=== PATIENT | male | born 1960 | race Caucasian/White ===

== ENCOUNTER → 2022-10-10 | Outpatient (CLI) | payer MEDICARE ==
--- NOTE | 2022-10-10 11:59 | CTL ---
EXAMINATION TYPE: CT Low Dose Lung DATE OF EXAM ORDERED: 10/10/2022 HISTORY: Z87.891. Lung cancer screening CT DLP: [address] CTDI: 1.82 mGy Automated exposure control for dose reduction was used. SCREENING VISIT: First screening visit COMPARISON: None TECHNIQUE: Low dose computed tomography scan was performed through the chest at 1 mm thick sections a nd reconstructed images in multiple planes at 1 mm and [address] DIAGNOSTIC QUALITY: Satisfactory FINDINGS: LUNG NODULES: Medial left lower lobe pleural-based 5.8 mm pulmonary nodule (series 4, image 171). Pos terior medial right upper lobe 4.4 mm pleural-based pulmonary nodule (series 4, image 40). LUNGS: COPD: Severity: None Fibrosis: Severity: None Lymph nodes: Few mediastinal lymph nodes measuring less than 1 cm short axis. Other findings: None RIGHT PLEURAL SPACE: Effusion: None Calcification: None Thickening: None Pneumothorax: None LEFT PLEURAL SPACE: Effusion: None Calcification: None Thickening: None Pneumothorax: None HEART: Heart Size: Normal Coronary Calcification: None Pericardial Effusion: None OTHER FINDINGS: Upper abdomen: Nonobstructing 1 cm left renal calculus. Bony thorax: No acute osseous abnormality. Degenerative changes of the thoracic spine. Supraclavicular region: None Other: None IMPRESSION: 1. There are 2 pleural-based pulmonary nodules with largest measuring up to 5.8 mm. 2. Nonobstructive left renal calculus. CT LUNG RAD AND CT CHEST RECOMMENDATION: Lung-Rad 2 Benign Appearance or Behavior: Continue annual sc reening with LDCT in 12 months. S Modifier (other clinically significant findings): None
== END | disposition home or self-care (01) ==
LOC: RADCTMAIN 11:05
PROVIDERS: ATTEND Family Medicine
DX: Z12.2 Encounter for screening for malignant neoplasm of respiratory organs (principal); F17.210 Nicotine dependence, cigarettes, uncomplicated; N20.0 Calculus of kidney; R91.8 Other nonspecific abnormal finding of lung field
CPT/HCPCS: 71271

== ENCOUNTER 2022-11-18 12:53 | Emergency (ER) | payer MEDICARE ==
[2022-11-18 13:02] VITALS: TEMP 97.5
[2022-11-18 13:55] LABS: Basophils % (A) 0 %; Eosinophils # (A) 0.4 k/uL (0-0.7); Eosinophils % (A) 5 %; HCT 38.4 % (39.0-53.0); HGB 12.9 gm/dL (13.0-17.5); Lymphocytes # (A) 2.7 k/uL (1.0-4.8); Lymphocytes % (A) 34 %; MCH 29.5 pg (25.0-35.0); MCHC 33.5 g/dL (31.0-37.0); MCV 88.1 fL (80.0-100.0); Monocytes # (A) 0.5 k/uL (0-1.0); Monocytes % (A) 6 %; Neutrophils # (A) 4.3 k/uL (1.3-7.7); Neutrophils % (A) 53 %; Platelet Count 292 k/uL (150-450); RBC 4.35 m/uL (4.30-5.90); RDW 13.9 % (11.5-15.5); WBC 8.1 k/uL (3.8-10.6)
[2022-11-18 14:00] VITALS: BP 124/75; PULSE 55; RESP 18
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
[2022-11-18 14:11] LABS: ALT 20 U/L (4-49); AST 19 U/L (17-59); African American GFR (CKD) >90 (>60 ml/min/1.73 sqM); Albumin 3.8 g/dL (3.5-5.0); Alkaline Phosphatase 137 U/L (38-126); Anion Gap 6 mmol/L; Blood Urea Nitrogen 17 mg/dL (9-20); Carbon Dioxide 27 mmol/L (22-30); Chloride 102 mmol/L (98-107); Glucose 99 mg/dL (74-99); Non-African American GFR(CKD) >90 (>60 ml/min/1.73 sqM); Potassium 3.4 mmol/L (3.5-5.1); Sodium 135 mmol/L (137-145); Total Bilirubin 0.4 mg/dL (0.2-1.3); Total Protein 6.7 g/dL (6.3-8.2)
[2022-11-18 14:25] LABS: INR 0.9 (<1.2); Partial Thromboplastin Time 23.6 sec (22.0-30.0); Prothrombin Time 9.8 sec (9.0-12.0)
--- NOTE | 2022-11-18 15:40 | CT ---
EXAMINATION TYPE: CT chest angio for PE CT DLP: 368.1 mGycm, Automated exposure control for dose reduction was used. DATE OF EXAM: 11/18/2022 3:25 PM COMPARISON: Chest CT 10/10/2022 . CLINICAL INDICATION:Male, 62 years old with history of elevated d-dimer; R/O PE. TECHNIQUE/CONTRAST: CTA scan of the thorax is performed with IV Contrast, patient injected with 100cc mL of Isovue 370, p ulmonary embolism protocol. MIP images are created and reviewed. FINDINGS: Pulmonary Artery: There is no evidence for a filling defect within the pulmonary vasculature to sugge st acute pulmonary embolism. The pulmonary artery is of normal size. Lungs/Pleura: Redemonstration of posterior, medial right upper lobe pulmonary nodule, measuring 5 mm (series 601, image 26), not significantly changed from prior CT. Stable appearance of 6 mm left lower lobe pleural-based pulmonary nodule (series 601, image 91). No focal consolidations, pleural effusio ns or pneumothorax. Airway: Secretions are seen within the trachea and main bronchi. Heart: Heart is within normal limits for size.. Vasculature: No evidence of aortic aneurysm. Mediastinum: No gross evidence of adenopathy. Musculoskeletal: Mild degenerative disc disease changes are present throughout the thoracolumbar spin e. Soft Tissues: Unremarkable. Lower neck: No significant findings. Upper Abdomen: Bilateral nonobstructing renal calculi, largest in the left kidney measuring 10 mm. IMPRESSION: 1. No evidence of pulmonary embolism. 2. Redemonstration of bilateral pleural-based pulmonary nodules, largest of which measures up to 6 mm . Overall unchanged from 10/10/2022. Continue to recommend one year low-dose CT follow-up. 3. Bilateral non-obstructing renal calculi.
== END 2022-11-18 15:40 | disposition left against medical advice (07) ==
LOC: EC 12:53
DX: N20.0 Calculus of kidney (principal); R07.9 Chest pain, unspecified; I10 Essential (primary) hypertension; E11.9 Type 2 diabetes mellitus without complications; J44.9 Chronic obstructive pulmonary disease, unspecified; F17.200 Nicotine dependence, unspecified, uncomplicated; Z88.0 Allergy status to penicillin; Z86.59 Personal history of other mental and behavioral disorders; Z53.29 Procedure and treatment not carried out because of patient's decision for other reasons
CPT/HCPCS: 36415; 93005; 85379; 83880; 80053; 83605; 84484; 85025; 85610; 85730; 71275; 99285; Q9967

== ENCOUNTER → 2023-03-07 | Outpatient (CLI) | payer MEDICARE ==
--- NOTE | 2023-03-12 13:24 | US ---
EXAMINATION TYPE: US thyroid st tissue head/neck DATE OF EXAM: 03/07/2023 COMPARISON: NONE CLINICAL INDICATION: Male, 62 years old with history of E04.1 NONTOXIC SINGLE THYROID NODULE; Abnorma l labs GLAND SIZE: Right Lobe: 3.9 x 1.6 x 1.8 cm Overall Parenchyma: homogenous Left Lobe: 3.8 x 1.4 x 1.2 cm Overall Parenchyma: homogeneous Isthmus Thickness: 0.6 cm NODULES RIGHT: # of nodules measured on right: 0 LEFT: # of nodules measured on left: 0 ISTHMUS: # of nodules measured in the isthmus: 0 Bilateral neck scanned, no evidence of lymphadenopathy. IMPRESSION: 1. No suspicious thyroid nodules.
== END | disposition home or self-care (01) ==
LOC: RADUSWWP 15:32
PROVIDERS: ATTEND Family Medicine
DX: E04.1 Nontoxic single thyroid nodule (principal)
CPT/HCPCS: 76536

== ENCOUNTER 2023-07-12 13:05 | Emergency (ER) | payer MEDICARE ==
[2023-07-12 13:22] VITALS: PULSE 55; RESP 20; TEMP 98.8
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
--- NOTE | 2023-07-12 15:49 | XR ---
EXAMINATION TYPE: XR lumbar spine 3V DATE OF EXAM: 07/12/2023 Comparison: None Clinical History: 63-year-old male Pain Findings: Leftward truncal shift. 5 lumbar type vertebral bodies. Facet arthropathy mid to lower lumbar spine. Moderate degenerative disc disease L4-L5 and L5-S1 with disc space narrowing and endplate spondylosis . Mild degenerative disc disease elsewhere in the lumbar spine. Vertebral body heights are preserved. Alignment maintained. Impression: 1. Facet arthropathy mid to lower lumbar spine. Moderate degenerative disc disease lower lumbar spine . Mild elsewhere in the lumbar spine. 2. No vertebral compression collapse or malalignment.
--- NOTE | 2023-07-12 15:51 | XR ---
EXAMINATION TYPE: XR ankle limited 2 views bilateral, XR foot limited 2 views bilateral DATE OF EXAM: 07/12/2023 COMPARISON: NONE HISTORY: 63-year-old male with pain FINDINGS: Ankles: No mortise view is provided on either side. There may be mild circumferential soft tissue swelling on both sides. No acute fracture, subluxation, or dislocation. Feet: Moderate degenerative change at the left greater than right first MTP joints. Hernandez's toe on the lef t. No acute fracture, subluxation, dislocation seen. IMPRESSION: 1. Ankles: There may be mild soft tissue swelling. No acute osseous abnormality seen. No mortise view provided. 2. Feet: Moderate first MTP joint OA, left greater than right. No acute osseous abnormality seen.
== END 2023-07-12 16:45 | disposition home or self-care (01) ==
LOC: EC 13:05
DX: M54.50 Low back pain, unspecified (principal); M25.473 Effusion, unspecified ankle; I10 Essential (primary) hypertension; E11.9 Type 2 diabetes mellitus without complications; J44.9 Chronic obstructive pulmonary disease, unspecified; F17.200 Nicotine dependence, unspecified, uncomplicated; Z88.0 Allergy status to penicillin; Z86.59 Personal history of other mental and behavioral disorders; W18.30XA Fall on same level, unspecified, initial encounter
CPT/HCPCS: 72100; 99283

== ENCOUNTER 2023-09-30 16:44 | Emergency (ER) | payer MEDICARE ==
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
[2023-09-30] MEDS: SULFAMETHOX-TMP 800-160MG 1 EACH TAB PO STA (17:24)
[2023-09-30] MEDS: CEPHALEXIN 500 MG CAP PO STA (17:25)
[2023-09-30] MEDS: DIPH,PERTUS(ACELL)TETVAC-LF 0.5 ML VIAL IM ONE (17:25)
[2023-09-30 18:17] VITALS: BP 129/69; PULSE 84; RESP 22; TEMP 99.3
== END 2023-09-30 18:38 | disposition home or self-care (01) ==
LOC: EC 16:44
DX: S81.812A Laceration without foreign body, left lower leg, initial encounter (principal); L03.116 Cellulitis of left lower limb; F17.200 Nicotine dependence, unspecified, uncomplicated; Z88.0 Allergy status to penicillin; Z23 Encounter for immunization; W26.8XXA Contact with other sharp object(s), not elsewhere classified, initial encounter
CPT/HCPCS: 90471; 90715; 99282

== ENCOUNTER 2024-01-18 12:21 | Inpatient (IN) | payer MEDICARE ==
[2024-01-18] MEDS: KETOROLAC 15 MG/ML 1 ML VIAL IVP STA (12:38)
[2024-01-18 13:25] LABS: Basophils % (A) 0 %; Eosinophils # (A) 0.2 k/uL (0-0.7); Eosinophils % (A) 1 %; HCT 37.2 % (39.0-53.0); Lymphocytes % (A) 6 %; MCH 28.4 pg (25.0-35.0); MCHC 32.4 g/dL (31.0-37.0); MCV 87.8 fL (80.0-100.0); Mean Platelet Volume 6.6; Monocytes # (A) 1.1 k/uL (0-1.0); Monocytes % (A) 6 %; Neutrophils # (A) 14.4 k/uL (1.3-7.7); Neutrophils % (A) 86 %; Platelet Count 357 k/uL (150-450); RBC 4.23 m/uL (4.30-5.90); RDW 14.9 % (11.5-15.5); WBC 16.7 k/uL (3.8-10.6)
--- NOTE | 2024-01-18 13:25 | XR ---
EXAMINATION TYPE: XR chest 2V DATE OF EXAM: 01/18/2024 COMPARISON: NONE HISTORY: Chest pain and dyspnea TECHNIQUE: Frontal and lateral views of the chest are obtained. FINDINGS: There is a partially consolidative/airspace infiltrate and small pleural effusion in the left lung base left lung base most consistent with an acute pneumonia. Short-term follow-up to resolution is recommended. The heart and pulmonary vasculature are noted. The right lung is clear. IMPRESSION: Left lower lobe infiltrate and small effusion most likely acute pneumonia.
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
[2024-01-18 13:39] LABS: ALT 12 U/L (4-49); AST 19 U/L (17-59); African American GFR (CKD) >90 (>60 ml/min/1.73 sqM); Albumin 3.8 g/dL (3.5-5.0); Alcohol <10 mg/dL; Alkaline Phosphatase 173 U/L (38-126); Anion Gap 7 mmol/L; Blood Urea Nitrogen 17 mg/dL (9-20); Calcium 8.9 mg/dL (8.4-10.2); Carbon Dioxide 25 mmol/L (22-30); Chloride 102 mmol/L (98-107); Creatine Kinase 76 U/L (55-170); Glucose 108 mg/dL (74-99); Lipase 26 U/L (23-300); Magnesium 1.5 mg/dL (1.6-2.3); Non-African American GFR(CKD) >90 (>60 ml/min/1.73 sqM); Potassium 3.1 mmol/L (3.5-5.1); Sodium 134 mmol/L (137-145); Total Bilirubin 0.6 mg/dL (0.2-1.3); Total Protein 6.6 g/dL (6.3-8.2)
[2024-01-18 13:45] LABS: NT-Pro-B-Type Natriuretic Pept 358 pg/mL
[2024-01-18] MEDS: IPRATROPIUM-ALBUTEROL 3 ML NEB INHALATION STA (14:06)
[2024-01-18] MEDS: cefTRIAXone IN SWFI 1,000 MG/10 ML SYRINGE IVP STA (14:29)
--- NOTE | 2024-01-18 15:19 | CT ---
EXAMINATION TYPE: CT angio chest DATE OF EXAM: 01/18/2024 COMPARISON: 11/18/2022 HISTORY: elevated d dimer. c/o dyspnea. CT DLP: 295 mGycm CONTRAST: CT chest with contrast and 3D reconstruction with MIP imaging is performed with IV Contrast, patient injected with 100 ml mL of Isovue 370. Contrast-enhanced CT of the chest was performed through the course of the pulmonary arteries with osmar g and mediastinal window settings submitted. 3D reconstruction with MIP imaging was also performed. PULMONARY ARTERIES: The pulmonary arteries and their major tributaries are patent. I do not see jeffrey dence for sizable filling defect to suggest pulmonary embolic process. LUNGS: There is a small left-sided pleural effusion. Focal masslike consolidation seen left lower lob e which could reflect pneumonia or aspiration pneumonia. Underlying neoplasm is not excluded. Masslik e area measures 4.7 x 4.0 cm. Follow-up until resolution and strict clinical correlation advised. If abnormality does not resolve PET CT is advised. Small groundglass density left upper lobe image 86. MEDIASTINUM: Thoracic aorta is of normal caliber. The heart is not enlarged. No evidence for medias tinal mass. No mediastinal lymph nodes greater than 1cm. HILAR STRUCTURES: No evidence for mass. No hilar lymph nodes greater than 1 cm. UPPER ABDOMEN: No significant abnormality is seen. IMPRESSION: 1. No evidence for Pulmonary embolism at this time. 2.Focal masslike consolidation seen left lower lobe which could reflect pneumonia or aspiration pneum onia. Underlying neoplasm is not excluded. Masslike area measures 4.7 x 4.0 cm. Follow-up until resol ution and strict clinical correlation advised. If abnormality does not resolve PET CT is advised.
[2024-01-18] MEDS ORDERED: PNEUMONIA PROTOCOL UTILIZED 1 EACH MISC PO PRN (17:52)
[2024-01-18] MEDS: SODIUM CHLORIDE 0.9% 1,000 ML IV SCH (18:18)
[2024-01-18] MEDS: AZITHROMYCIN 500 MG in SODIUM CHLORIDE 0.9% 250 ML IVPB STA (18:18)
[2024-01-18] MEDS ORDERED: Potassium Replacement Protocol 1 EACH MISC MISCELLANE PRN (19:01)
[2024-01-18] MEDS: IPRATROPIUM-ALBUTEROL 3 ML NEB INHALATION SCH (20:31)
[2024-01-18] MEDS: SYMBICORT 160-4.5 MCG INHALER INHALATION SCH (20:31)
[2024-01-18] MEDS: HYDROcodone/APAP 10-325MG 1 EACH TAB PO SCH (20:46)
[2024-01-18] MEDS: POTASSIUM CHLORIDE ER 20 MEQ TAB.ER PO SCH (20:48)
[2024-01-18] MEDS: VENLAFAXINE HCL ER 150 MG CAP PO SCH (21:48)
[2024-01-18] MEDS: NON FORMULARY DRUG (Dextroamphetamine/Amphetamine [Adderall] 20 MG Tablet) PO SCH (23:02)
[2024-01-19] MEDS: POTASSIUM CHLORIDE ER 20 MEQ TAB.ER PO SCH ×3 (02:10→18:03)
[2024-01-19] MEDS: HYDROmorphone 1 MG/ML 1 ML SYRINGE IVP PRN (06:12)
--- NOTE | 2024-01-19 06:48 | XR ---
EXAMINATION TYPE: XR chest 2V DATE OF EXAM: 01/19/2024 COMPARISON: 01/18/2024 HISTORY: Pneumonia, cough and shortness of breath TECHNIQUE: Frontal and lateral views of the chest are obtained. FINDINGS: There is interval worsening in the left lower lobe opacification. There is a new small loculated ple ural effusion at the costophrenic angle. Overall pleural effusion significantly increased compared to previous. The right lung remains clear. There is no pneumothorax. Osseous structures are intact. IMPRESSION: Worsening acute cardiopulmonary process in the left lower lobe. Findings are consistent with the pro vided history of pneumonia.
[2024-01-19] MEDS: ASPIRIN 81 MG PO SCH (09:14)
[2024-01-19] MEDS: amLODIPine 10 MG TAB PO SCH (09:14)
[2024-01-19] MEDS: AZITHROMYCIN 500 MG TAB PO SCH (09:14)
[2024-01-19] MEDS: ATORVASTATIN 80 MG TAB PO SCH (09:14)
[2024-01-19] MEDS: PROPRANOLOL LA 80 MG CAP.SA.24H PO SCH (09:14)
[2024-01-19] MEDS: FERROUS SULFATE 325 MG TAB PO SCH (09:14)
[2024-01-19] MEDS: PANTOPRAZOLE 40 MG TABLET PO SCH (09:14)
[2024-01-19] MEDS: NON FORMULARY DRUG (Atomoxetine Hcl [Strattera] 80 MG Capsule) PO SCH (09:15)
[2024-01-19] MEDS: NICOTINE 21MG/24HR PATCH TRANSDERM SCH (15:25)
[2024-01-19] MEDS ORDERED: Potassium Replacement Protocol 1 EACH MISC MISCELLANE PRN (17:51)
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
[2024-01-20 08:45] LABS: HCT 37.8 % (39.6-50.0); MCHC 31.7 g/dL (32.0-37.0); MCV 88.1 FL (80.0-97.0); Mean Platelet Volume 9.9 FL (9.5-12.2); NRBC Per 100 WBC 0 X 10*3/uL (0.00-0.01); Platelet Count 308 X 10*3/uL (140-440); RBC 4.29 X 10*6/uL (4.40-5.60); RDW 15.2 % (11.5-14.5); WBC 17.93 X 10*3/uL (4.50-10.00)
[2024-01-20 09:24] LABS: BUN/Creat Ratio 20.17 Ratio (12.00-20.00); Blood Urea Nitrogen 12.1 mg/dL (9.0-27.0); Calcium 8.7 mg/dL (8.7-10.3); Carbon Dioxide 24.5 mmol/L (21.6-31.8); Chloride 100 mmol/L (96-109); Glucose 100 mg/dL (70-110); Sodium 135 mmol/L (135-145)
[2024-01-20 10:23] LABS: Basophils # (A) 0.05 X 10*3/uL (0.00-0.10); Basophils % (A) 0.3 %; Eosinophils # (A) 0.23 X 10*3/uL (0.04-0.35); Eosinophils % (A) 1.3 %; Lymphocytes # (A) 1.35 X 10*3/uL (0.90-5.00); Lymphocytes % (A) 7.5 %; Monocytes # (A) 1.79 X 10*3/uL (0.20-1.00); Neutrophils % (A) 80.3 %; RBC Morphology Normal (Normal)
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
[2024-01-20 14:30] VITALS: BMI 20.6
[2024-01-20 20:14] LABS: Amphetamine Screen,Urine Detected (NotDetected); Barbiturate Screen,Urine Not Detected (NotDetected); Benzodiazepines Screen,Urine Not Detected (NotDetected); Cocaine Screen,Urine Not Detected (NotDetected); Methadone Screen, Urine Not Detected (NotDetected); Opiate Screen,Urine Detected (NotDetected); Oxycodone Screen, Urine Not Detected (NotDetected); Phencyclidine Screen,Urine Not Detected (NotDetected); Tricyclic Antidepressant,Urine Not Detected (NotDetected); Urn Cannabinoid Scrn Not Detected (NotDetected)
--- NOTE | 2024-01-20 22:19 | P.PN ---
Subjective Progress Note Date: 01/20/24 Principal diagnosis: Reason for follow-up is pneumonia Patient is a 63-year-old male with a past medical history significant for diabetes mellitus hypertension COPD anxiety PTSD current everyday smoker presenting to the hospital for evaluation of left-sided chest pain and cough patient did have a chest x-ray followed by CT concerning for focal masslike consolidation in the left lower lobe with a question of pneumonia. On today's evaluation that is 01/20/2024, the patient continues to be afebrile, the patient is on room air and breathing comfortably, the Pt left-sided chest pain has slightly decreased intensity he can did have a cough but not bring up any sputum denies any nausea no vomiting no abdominal pain or diarrhea. Patient white count 17.93 creatinine 0.6 urine for Legionella antigen negative blood and sputum cultures currently pending Objective - Vital Signs Vital signs: Vital Signs Temp 98.8 F 01/20/24 11:52 Pulse 80 01/20/24 11:52 Resp 16 01/20/24 11:52 BP 136/67 01/20/24 11:52 Pulse Ox 93 L 01/20/24 11:52 FiO2 Intake & Output 01/19/24 01/20/24 01/20/24 18:59 06:59 18:59 Intake Total 1200 1200 Output Total 300 300 Balance 1200 900 -300 Intake: Intake, IV Titration 1200 1200 Amount Sodium Chloride 0.9% 1, 1200 1200 000 ml @ 100 mls/hr IV . Q10H [facility] Rx#:[id number] Output: Urine 300 300 Other: Voiding Method Toilet Urinal # Voids 3 1 # Bowel Movements 0 - Exam GENERAL DESCRIPTION: An elderly male lying in bed in no distress RESPIRATORY SYSTEM: Unlabored breathing , decreased breath sounds at bases HEART: S1 S2 regular rate and rhythm , ABDOMEN: Soft , no tenderness EXTREMITIES: No edema feet - Labs CBC & Chem 7: 01/20/24 05:35 01/20/24 05:35 Labs: Abnormal Lab Results - Last 24 Hours (Table) 01/20/24 01/20/24 Range/Units 05:35 05:35 WBC 17.93 H (4.50-10.00) X 10*3/uL RBC 4.29 L (4.40-5.60) X 10*6/uL Hgb 12.0 L (13.0-17.0) g/dL Hct 37.8 L (39.6-50.0) % MCHC 31.7 L (32.0-37.0) g/dL RDW 15.2 H (11.5-14.5) % Immature Gran # 0.11 H (0.00-0.04) X 10*3/uL Neutrophils # 14.40 H (1.80-7.70) X 10*3/uL Monocytes # 1.79 H (0.20-1.00) X 10*3/uL BUN/Creatinine Ratio 20.17 H (12.00-20.00) Ratio C-Reactive Protein 24.30 H (0.00-0.80) mg/dL Microbiology - Last 24 Hours (Table) 01/19/24 05:50 Gram Stain - Preliminary Sputum Sputum Culture - Preliminary 01/18/24 15:11 Blood Culture - Preliminary Blood Assessment and Plan (1) Penicillin allergy Current Visit: Yes Status: Acute Code(s): Z88.0 - ALLERGY STATUS TO PENICIL [place] SNOMED Code(s): 00696279 (2) Leukocytosis Current Visit: Yes Status: Acute Code(s): D72.829 - ELEVATED WHITE BLOOD CELL COUNT, UNSPECIFIED SNOMED Code(s): 611195967 (3) Lung mass Current Visit: Yes Status: Acute Code(s): R91.8 - OTHER NONSPECIFIC ABNORMAL FINDING OF LUNG FIELD SNOMED Code(s): 363047335 (4) Pneumonia Current Visit: Yes Status: Acute Code(s): J18.9 - PNEUMONIA, UNSPECIFIED ORGANISM SNOMED Code(s): 700672104 Plan: 1patient presented to hospital with left-sided chest pain he also have a cough no high-grade fever however he did have elevated white count chest x-ray was suspicious for left lobe pneumonia and small effusion CT is not showing possible masslike consolidation with a question of pneumonia versus neoplasm 2-blood and sputum culture have been obtained results will be followed 3-patient has been evaluated by pulmonary recommending close follow-up and repeat CT and if no resolution only then to go for PET scan and biopsy 4-patient to continue with Rocephin and Zithromax pending completion of the culture and monitor clinical course closely Dictation was produced using [employer] software. please excuse any grammatical, word or spelling errors. Time with Patient: Less than 30
--- NOTE | 2024-01-21 01:00 | PN ---
PROGRESS NOTE OBJECTIVE: VITAL SIGNS: Temperature 98.8, pulse 80s, respiratory rate 16 to 18, blood pressure 136/67, O2 93%. CARDIOVASCULAR: S1, S2. LUNGS: Transmitted upper sounds. GI: Soft. HEMATOLOGY: Negative for Homans. PSYCH: Fair mood and affect. LABORATORY DATA: White count 17.93 with a left shift, sodium 135, potassium 4.0, BUN is 12.1, creatinine 0.6. CRP is 24.3. Procalcitonin 0.31. ASSESSMENT: Community-acquired pneumonia, hypoxemic respiratory failure, COPD exacerbation, possible lung cancer with pulmonary mass. The patient's hypokalemia is improved. The patient will follow up at home with IV antibiotics to oral antibiotics in the next 24 to 48 hours if the patient clinically improves, sat over 90s on 2 L. MMHANGL / LENNYN: [id number] /
[2024-01-21 12:55] VITALS: RESP 16
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
--- NOTE | 2024-01-22 02:08 | PN ---
PROGRESS NOTE SUBJECTIVE: A 63-year-old white male, being treated for pneumonia, wants to be discharged in the morning due to pneumonia. Once IV antibiotics were switched to his oral, he can go home tomorrow. He has a mass versus pneumonia versus cancer. He feels better with left- sided chest pain since we have been treating him for pneumonia. He needs outpatient PET scan, which was set up. OBJECTIVE: VITAL SIGNS: Blood pressure 114/69, temp 98.7, pulse 66, respiratory rate 16 to 18, O2 of 94%. CARDIOVASCULAR: S1, S2. LUNGS: Scattered rhonchi and wheeze. HEMATOLOGY: Negative Homans. PSYCH: Fair mood and affect. NEUROLOGIC: Alert and oriented x3. Left-sided round pneumonia, on broad-spectrum antibiotics. Left-sided pleuritis, left- sided pleural-based lung mass 4 x 5.5, possible pneumonia, COPD exacerbation, hypertensive cardiovascular disease, nicotine addiction. Continue with IV antibiotics, steroids, updrafts. Prognosis guarded. MMODL / IJN: [id number] /
[2024-01-22 07:35] LABS: Basophils # (A) 0.1 k/uL (0-0.2); Basophils % (A) 0 %; Eosinophils # (A) 0.2 k/uL (0-0.7); Eosinophils % (A) 2 %; HCT 39.5 % (39.0-53.0); HGB 12.9 gm/dL (13.0-17.5); Lymphocytes # (A) 1.2 k/uL (1.0-4.8); Lymphocytes % (A) 9 %; MCH 28.9 pg (25.0-35.0); MCHC 32.8 g/dL (31.0-37.0); MCV 88.1 fL (80.0-100.0); Monocytes # (A) 1.5 k/uL (0-1.0); Monocytes % (A) 11 %; Neutrophils # (A) 10.2 k/uL (1.3-7.7); Neutrophils % (A) 77 %; Platelet Count 319 k/uL (150-450); RBC 4.48 m/uL (4.30-5.90); RDW 14.5 % (11.5-15.5); WBC 13.3 k/uL (3.8-10.6)
--- NOTE | 2024-01-22 08:06 | P.PN ---
Subjective Progress Note Date: 01/21/24 Principal diagnosis: Reason for follow-up is pneumonia Patient is a 63-year-old male with a past medical history significant for diabetes mellitus hypertension COPD anxiety PTSD current everyday smoker presenting to the hospital for evaluation of left-sided chest pain and cough patient did have a chest x-ray followed by CT concerning for focal masslike consolidation in the left lower lobe with a question of pneumonia. On today's evaluation that is 01/21/2024, Patient is afebrile patient is currently on 2 L current oxygen and denies having any worsening shortness of breath, the patient left-sided chest pain and cough has decreased in intensity, the patient denies any nausea vomiting did not have any abdominal pain and no diarrhea. Patient white count is 17.93 creatinine 0.6 urine for Legionella antigen negative blood and sputum cultures currently pending Objective - Vital Signs Vital signs: Vital Signs Temp 98.7 F 01/21/24 12:34 Pulse 66 01/21/24 12:34 Resp 16 01/21/24 12:34 BP 114/69 01/21/24 12:34 Pulse Ox 94 L 01/21/24 12:34 FiO2 Intake & Output 01/20/24 01/21/24 01/21/24 18:59 06:59 18:59 Output Total 300 600 800 Balance -300 -600 -800 Weight 68.946 kg Output: Urine 300 600 800 Other: Voiding Method Toilet Toilet Urinal Urinal # Voids 0 - Exam GENERAL DESCRIPTION: An elderly male lying in bed in no distress RESPIRATORY SYSTEM: Unlabored breathing , decreased breath sounds at bases HEART: S1 S2 regular rate and rhythm , ABDOMEN: Soft , no tenderness EXTREMITIES: No edema feet - Labs CBC & Chem 7: 01/22/24 05:52 01/20/24 05:35 Labs: Abnormal Lab Results - Last 24 Hours (Table) 01/20/24 Range/Units 19:48 Urine Opiates Screen Detected H (NotDetected) Ur Amphetamines Screen Detected H (NotDetected) Microbiology - Last 24 Hours (Table) 01/19/24 05:50 Gram Stain - Final Sputum Sputum Culture - Final 01/18/24 15:11 Blood Culture - Preliminary Blood Assessment and Plan (1) Penicillin allergy Current Visit: Yes Status: Acute Code(s): Z88.0 - ALLERGY STATUS TO PENICILLIN SNOMED Code(s): 07179964 (2) Leukocytosis Current Visit: Yes Status: Acute Code(s): D72.829 - ELEVATED WHITE BLOOD CELL COUNT, UNSPECIFIED SNOMED Code(s): 710198068 (3) Lung mass Current Visit: Yes Status: Acute Code(s): R91.8 - OTHER NONSPECIFIC ABNORMAL FINDING OF LUNG FIELD SNOMED Code(s): 156332218 (4) Pneumonia Current Visit: Yes Status: Acute Code(s): J18.9 - PNEUMONIA, UNSPECIFIED ORGANISM SNOMED Code(s): 598519644 Plan: 1patient presented to hospital with left-sided chest pain he also have a cough no high-grade fever however he did have elevated white count chest x-ray was suspicious for left lobe pneumonia and small effusion CT is not showing possible masslike consolidation with a question of pneumonia versus neoplasm 2-blood and sputum culture have been obtained which are currently pending 3-patient has been evaluated by pulmonary recommending close follow-up and repeat CT and if no resolution only then to go for PET scan and biopsy 4-patient to continue with Rocephin and Zithromax pending completion of the culture to determine his discharge antibiotic as the patient has been insisting on going home tomorrow Dictation was produced using [employer] dictation software. please excuse any grammatical, word or spelling errors. Time with Patient: Less than 30
[2024-01-22 09:59] LABS: ALT 47 U/L (4-49); AST 66 U/L (17-59); African American GFR (CKD) >90 (>60 ml/min/1.73 sqM); Albumin 2.6 g/dL (3.5-5.0); Alkaline Phosphatase 331 U/L (38-126); Anion Gap 7 mmol/L; Blood Urea Nitrogen 13 mg/dL (9-20); Calcium 8.8 mg/dL (8.4-10.2); Carbon Dioxide 26 mmol/L (22-30); Chloride 102 mmol/L (98-107); Globulin 2.6 g/dL; Glucose 86 mg/dL (74-99); Non-African American GFR(CKD) >90 (>60 ml/min/1.73 sqM); Potassium 3.7 mmol/L (3.5-5.1); Sodium 135 mmol/L (137-145); Total Bilirubin 0.5 mg/dL (0.2-1.3); Total Protein 5.2 g/dL (6.3-8.2)
--- NOTE | 2024-01-22 13:39 | PN ---
PROGRESS NOTE SUBJECTIVE: Left lower lobe pneumonia, severe pleuritic chest pain. Discussed with them the pain pills going on, can take up to 4 times a day, t.i.d., take a q.i.d. His chest pain is most improved after IV antibiotics for pneumonia. He is leaving today no matter what he says. He will refuse to stay for more IV antibiotics. OBJECTIVE: CARDIOVASCULAR: S1, S2. LUNGS: Scattered rhonchi and wheeze. PSYCH: Fair mood and affect. ASSESSMENT: Left lower lobe pneumonia, COPD, nicotine addiction. I will discharge him home on oral Ceftin for a week. Recheck CAT scan. Follow up in office in a week. Prognosis Guarded. Portable home oxygen will be needed until pneumonia clears. Prognosis guarded. MMODL / IJN: [id number] /
[2024-01-22 13:42] VITALS: BP 116/62; PULSE 67; TEMP 98
[2024-01-23] MEDS ORDERED: methylPREDNISolone 4 MG TAB TAPER PO SCH (09:00)
--- NOTE | 2024-01-23 14:30 | P.PN ---
Subjective Progress Note Date: 01/22/24 Principal diagnosis: Reason for follow-up is pneumonia Patient is a 63-year-old male with a past medical history significant for diabetes mellitus hypertension COPD anxiety PTSD current everyday smoker presenting to the hospital for evaluation of left-sided chest pain and cough patient did have a chest x-ray followed by CT concerning for focal masslike consolidation in the left lower lobe with a question of pneumonia. On today's evaluation that is 01/22/2024, patient has been afebrile, patient is breathing comfortably and is currently on room air, patient cough has decreased intensity not bring up any sputum, no chest pain shortness of breath, patient denies nausea vomiting or diarrhea and no abdominal pain, patient mention feeling better wants to go home. Patient white count is down to 13.3, creatinine 0.51 sputum has been negative so far blood culture negative Objective - Vital Signs Vital signs: Vital Signs Temp 99.0 F 01/22/24 07:15 Pulse 72 01/22/24 10:40 Resp 16 01/22/24 07:15 BP 126/66 01/22/24 07:15 Pulse Ox 91 L 01/22/24 10:40 FiO2 Intake & Output 01/21/24 01/22/24 01/22/24 18:59 06:59 18:59 Intake Total 1560 Output Total 800 600 600 Balance -800 960 -600 Intake: Oral 1560 Output: Urine 800 600 600 Other: Voiding Method Toilet Urinal # Voids 2 - Exam GENERAL DESCRIPTION: An elderly male lying in bed in no distress RESPIRATORY SYSTEM: Unlabored breathing , decreased breath sounds at bases HEART: S1 S2 regular rate and rhythm , ABDOMEN: Soft , no tenderness EXTREMITIES: No edema feet - Labs CBC & Chem 7: 01/22/24 05:52 01/22/24 08:19 Labs: Abnormal Lab Results - Last 24 Hours (Table) 01/22/24 01/22/24 Range/Units 05:52 08:19 WBC 13.3 H (3.8-10.6) k/uL Hgb 12.9 L (13.0-17.5) gm/dL Neutrophils # 10.2 H (1.3-7.7) k/uL Monocytes # 1.5 H (0-1.0) k/uL Sodium 135 L (137-145) mmol/L Creatinine 0.51 L (0.66-1.25) mg/dL AST 66 H (17-59) U/L Alkaline Phosphatase 331 H (38-126) U/L Total Protein 5.2 L (6.3-8.2) g/dL Albumin 2.6 L (3.5-5.0) g/dL Microbiology - Last 24 Hours (Table) 01/18/24 15:11 Blood Culture - Preliminary Blood 01/19/24 05:50 Gram Stain - Final Sputum Sputum Culture - Final Assessment and Plan (1) Penicillin allergy Status: Acute Code(s): Z88.0 - ALLERGY STATUS TO PENICILLIN SNOMED Code(s): 74758954 (2) Leukocytosis Status: Acute Code(s): D72.829 - ELEVATED WHITE BLOOD CELL COUNT, UNSPECIFIED SNOMED Code(s): 284898953 (3) Lung mass Status: Acute Code(s): R91.8 - OTHER NONSPECIFIC ABNORMAL FINDING OF LUNG FIELD SNOMED Code(s): 609352672 (4) Pneumonia Status: Acute Code(s): J18.9 - PNEUMONIA, UNSPECIFIED ORGANISM SNOMED Code(s): 199101303 Plan: 1patient presented to hospital with left-sided chest pain he also have a cough no high-grade fever however he did have elevated white count chest x-ray was suspicious for left lobe pneumonia and small effusion CT is not showing possible masslike consolidation with a question of pneumonia versus neoplasm 2-blood and sputum culture have been obtained which are currently pending 3-patient has been evaluated by pulmonary recommending close follow-up and repeat CT and if no resolution only then to go for PET scan and biopsy 4-patient blood and sputum culture have been negative patient has been insisting on going home, it is not a typical community-acquired pneumonia keeping in mind his history of COPD and possible lung mass we will plan on 7 to 10-day course of oral antibiotics on discharge and close outpatient follow-up Dictation was produced using [employer] dictation software. please excuse any grammatical, word or spelling errors. Time with Patient: Less than 30
== END 2024-01-22 14:13 | disposition home or self-care (01) | DRG 193 ==
LOC: EC 12:21 → 5NMEDONC 17:52
PROVIDERS: ADMIT Family Medicine; ATTEND Family Medicine
DX: J18.9 Pneumonia, unspecified organism (principal); J96.21 Acute and chronic respiratory failure with hypoxia; E87.1 Hypo-osmolality and hyponatremia; J44.1 Chronic obstructive pulmonary disease with (acute) exacerbation; J44.0 Chronic obstructive pulmonary disease with (acute) lower respiratory infection; E78.5 Hyperlipidemia, unspecified; Z20.822 Contact with and (suspected) exposure to COVID-19; E11.9 Type 2 diabetes mellitus without complications; F32.9 Major depressive disorder, single episode, unspecified; I10 Essential (primary) hypertension; G89.29 Other chronic pain; F43.10 Post-traumatic stress disorder, unspecified; D64.9 Anemia, unspecified; E87.6 Hypokalemia; K21.9 Gastro-esophageal reflux disease without esophagitis; Z79.899 Other long term (current) drug therapy; Z88.0 Allergy status to penicillin; Z79.82 Long term (current) use of aspirin
CPT/HCPCS: 36415; 71046; 71275; 80048; 80053; 80306; 80320; 82550; 83605; 83690; 83735; 83880; 84132; 84145; 84484; 85025; 85379; 86140; 87040; 87070; 87205; 87449; 87636; 93005; 94640; 94760; 96365; 96375; 99285